=== PATIENT | male | born 2000 | race Caucasian/White ===

== ENCOUNTER 2019-01-06 20:44 | Emergency (ER) | payer OTHER ==
[~2019-01-06] VITALS: Ht 175.3 cm; Wt 79.4 kg
== END 2019-01-07 01:07 | disposition home or self-care (01) ==
LOC: ER 20:44
DX: S61.422A Laceration with foreign body of left hand, initial encounter (principal); W26.0XXA Contact with knife, initial encounter; Y93.89 Activity, other specified; Y92.090 Kitchen in other non-institutional residence as the place of occurrence of the external cause; Y99.8 Other external cause status

== ENCOUNTER 2022-09-03 21:36 | Emergency (ER) | payer OTHER ==
[~2022-09-03] VITALS: Ht 172.7 cm; Wt 63.5 kg
== END 2022-09-03 22:13 | disposition home or self-care (01) ==
LOC: ER 21:36
DX: J30.9 Allergic rhinitis, unspecified (principal); R04.2 Hemoptysis; Z88.6 Allergy status to analgesic agent; Z91.013 Allergy to seafood